=== PATIENT | female | born 1955 | race Caucasian/White ===

== ENCOUNTER → 2020-10-22 | Outpatient (CLI) | payer BC ==
--- NOTE | 2020-10-22 09:37 | REP ---
INDICATION: PAIN IN RT ANKLE. COMPARISON: None. TECHNIQUE: AP, lateral, oblique views of the right ankle FINDINGS: Osseous structures and joint spaces are essentially age-appropriate and within normal limits. Lateral view demonstrates small calcaneal heel spur. Ankle mortise is intact. Scattered vascular calcifications are identified. No evidence for acute fracture or dislocation. No significant swelling. IMPRESSION: Generalized age-related changes. <Electronically signed by Ashwin Yepez > 10/22/20 [id number]
== END ==
LOC: M SOG 09:13
PROVIDERS: ATTEND Orthopaedic Surgery Adult Reconstructive Orthopaedic Surgery
DX: M25.571 Pain in right ankle and joints of right foot (principal)

== ENCOUNTER → 2020-11-19 | Outpatient (CLI) | payer BC ==
--- NOTE | 2020-11-19 11:05 | REP ---
INDICATION: PAIN IN RT ANKLE AND JONTS OF RT FOOT. Pain after a fall from a ladder January of 2020. COMPARISON: Comparison right ankle radiographs are from October 22 2020. Comparison os calcis radiographs are available from May 12, 2020 as well. TECHNIQUE: Axial, coronal, and sagittal imaging planes utilized. T1 and T2 weighted scans are included with without fat saturation. FINDINGS: Cortical and medullary bone signal intensity are normal in the talus and calcaneus. There is minimal subcortical cyst formation in the medial cuneiform. There is no evidence to suggest tarsal coalition or occult fracture. There is prominent plantar calcaneal spurring. There is thickening and increased signal intensity in the proximal 1.5 cm of plantar fascia consistent with plantar fasciitis. No bony erosive changes seen. There is mild fusiform thickening of the Achilles tendon. The Achilles tendon shows homogeneous low signal intensity. The radiographs appear to show calcification within the Achilles tendon consistent with chronic Achilles tendinitis but no other Achilles tendon abnormality is seen on MR. There is a small effusion in the extensor tendons across the ankle noted incidentally. Tibialis posterior, flexor digitorum, and flexor hallucis longus tendons are unremarkable. Laterally, intact peroneus longus and brevis tendons are seen. IMPRESSION: 1. There is mild fusiform thickening of the Achilles tendon which in combination with the radiographic findings of Achilles tendon calcifications suggest chronic Achilles tendinitis/tendinosis. 2. There is evidence of plantar fasciitis with plantar heel spurring. 3. No evidence of occult fracture. 4. There is a tendon sheath effusion in the extensor tendon sheath at the level of the ankle. <Electronically signed by Carlos Elizabeth > 11/19/20 [id number]
== END ==
LOC: M PLAIMG 09:38
PROVIDERS: ATTEND Orthopaedic Surgery Adult Reconstructive Orthopaedic Surgery
DX: M25.571 Pain in right ankle and joints of right foot (principal)

== ENCOUNTER → 2024-12-25 | Outpatient (REF) | payer MEDICARE ==
[2024-12-25 17:52] LABS: PHOSPHORUS LEVEL 3.9 MG/DL (2.4-5.1); PTH INTACT 51.6 PG/ML (18.5-88.0)
== END ==
LOC: M LAB REF 17:17
PROVIDERS: ATTEND Internal Medicine
DX: E83.52 Hypercalcemia (principal); M81.0 Age-related osteoporosis without current pathological fracture